=== PATIENT | male | born 1970 | race Caucasian/White ===

== ENCOUNTER → 2018-08-27 | Outpatient (CLI) | payer BC ==
--- NOTE | 2018-08-27 13:17 | XR ---
EXAMINATION TYPE: XR shoulder complete LT DATE OF EXAM: 08/27/2018 COMPARISON: NONE HISTORY: Pain TECHNIQUE: Three views are submitted. FINDINGS: The osseous structures are intact. There is no acute fracture or dislocation. Suggestion of a surgic al clip overlying the glenoid. Severe arthropathy of the glenohumeral joint. IMPRESSION: 1. Severe glenohumeral joint arthropathy.
== END | disposition home or self-care (01) ==
LOC: RADXRMAIN 12:58
PROVIDERS: ATTEND Family Medicine
DX: M12.812 Other specific arthropathies, not elsewhere classified, left shoulder (principal); M25.512 Pain in left shoulder

== ENCOUNTER → 2018-09-18 | Outpatient (CLI) | payer BC ==
--- NOTE | 2018-09-24 11:01 | MR ---
EXAMINATION TYPE: MR shoulder LT wo/w con DATE OF EXAM: 09/18/2018 COMPARISON: Left shoulder x-ray August 27, 2015. Outside left shoulder MRI October 05, 2016. HISTORY: Pain in Left shoulder, history of prior surgeries. TECHNIQUE: Multiplanar, multisequence images of the left shoulder is performed without and with 7.5 m L intravenous Gadavist gadolinium contrast. FINDINGS: Rotator Cuff: Distal supraspinatus and infraspinatus tendons are intact. Distal subscapularis tendon is intact. Rotator cuff muscle bulk is preserved. Acromioclavicular Joint: There is focal effusion at acromioclavicular joint. No significant spurring or joint space loss is noted. Distal acromion morphology is unremarkable. Glenohumeral Joint: Advanced glenohumeral joint arthropathy is identified as there is high riding hum eral head with marked loss, there is subchondral cystic change throughout the osseous glenoid and sub chondral cystic change and edema through the medial portion of the humeral head. Susceptibility Artif act from prior surgery superior aspect of glenoid is noted. Labrum: The superior labrum is blunted with abnormal signal, SLAP type tear is suspected. Biceps Tendon: The long head of biceps is in normal location within bicipital groove. Bone marrow signal: See glenohumeral joint findings detailed above. Other: No suspicious enhancement is seen. IMPRESSION: 1. Since prior MRI which demonstrated surgical change superior glenoid there is new advanced glenohum eral joint arthropathy and high riding humeral head suggesting instability. No rotator cuff tear is e vident.
== END | disposition home or self-care (01) ==
LOC: RADMRIMAIN 06:09
PROVIDERS: ATTEND Family Medicine
DX: M19.012 Primary osteoarthritis, left shoulder (principal); Z98.890 Other specified postprocedural states

== ENCOUNTER → 2019-07-23 | Outpatient (CLI) | payer BC ==
--- NOTE | 2019-07-23 16:07 | XR ---
Left knee HISTORY: Swelling 3 views of the left knee, no comparisons Bone mineralization, joint spaces and alignment are maintained. Vascular calcifications are suspected within the soft tissues. Suprapatellar increased density may be indicative of joint effusion. No fra cture or dislocation. IMPRESSION: Possible joint effusion. Knee MRI may be of benefit.
== END | disposition home or self-care (01) ==
LOC: RADXRMAIN 12:12
PROVIDERS: ATTEND Family Medicine
DX: M25.562 Pain in left knee (principal)

== ENCOUNTER → 2020-10-20 | Outpatient (CLI) | payer BC ==
--- NOTE | 2020-10-20 13:49 | P.STRESS ---
- Stress Test Note Stress Test Results/Findings: Exam Performed: stress echo exercise Exam Date: 10/20/20 Reason for Exam: DIZZINESS Height: 5 ft 10 in Weight: 83.461 kg Protocol: EXERCISE STRESS ECHO Stage: III Duration of Exercise: 9:01 Resting Heart Rate: 69 Resting Blood Pressure: 112/40 Maximum Achieved Heart Rate: 150 Maximum Achieved Blood Pressure: 229/69 85% PMHR: 145 100% PMHR: 170 METS: 10.5 Technologist Comment: Stress Test Results/Findings: Patient underwent exercise stress echo with a Quang protocol treadmill stress test. Patient exercised into Stage 3 for a total of 9 minutes reaching a total of and 10.5 METS. Patient's maximum heart rate was 150 which represented 88 % age-predicted maximum heart rate. Stress EKG portion: At baseline patient's EKG showed normal sinus rhythm, normal axis, no significant ST or T wave abnormalities. At peak exercise, EKG showed no significant change from baseline. Stress echo portion: 2-D echocardiogram was performed in the parasternal long, personal short, apical 2 and apical four-chamber views at rest, peak exercise and in recovery. At baseline, echocardiogram showed left ventricular ejection fraction 60 % without wall motion abnormalities. With peak exercise, echocardiogram shows improvement in left ventricular ejection fraction, increase contractility, decrease in left ventricular dimension without wall motion abnormalities consistent with a normal response to exercise. Conclusions: 1. Normal EKG and echo response to exercise without evidence of inducible ischemia. 2. Good exercise capacity.
== END | disposition home or self-care (01) ==
LOC: RADNMMAIN 09:50
PROVIDERS: ATTEND Family Medicine
DX: R07.9 Chest pain, unspecified (principal)
CPT/HCPCS: 93351

== ENCOUNTER 2021-11-25 08:20 | Day surgery (SDC) | payer BC ==
[2021-11-22 09:10] VITALS: BMI 28.7
[~2021-11-25 08:20] MED LIST: LACTATED RINGERS 1,000 ML IV SCH; LIDOCAINE 1% (10MG/ML) FOR IV START INTRADERMA PRN
[2021-11-25 08:52] VITALS: TEMP 97.7
[2021-11-25] MEDS ORDERED: PROPOFOL 10 MG/ML 20 ML VIAL IV ONE (09:23)
[2021-11-25] MEDS ORDERED: LIDOCAINE 1% INJ 10MG/ML (20 ML MDV) ONE (09:23)
--- NOTE | 2021-11-25 09:23 | P.GSHP ---
History of Present Illness H&P Date: 11/25/21 Chief Complaint: Screening colonoscopy This a 51-year-old male who presents today for screening colonoscopy. Patient denies any significant GI complaints. Past Medical History Past Medical History: Hyperlipidemia History of Any Multi-Drug Resistant Organisms: None Reported Past Surgical History: Joint Replacement Additional Past Surgical History / Comment(s): left shoulder Past Anesthesia/Blood Transfusion Reactions: No Reported Reaction Past Psychological History: No Psychological Hx Reported Smoking Status: Former smoker Past Alcohol Use History: None Reported Past Drug Use History: Marijuana Additional Drug Use History / Comment(s): medical card-for pain issues Medications and Allergies Home Medications Medication Instructions Recorded Confirmed Type Atorvastatin [Lipitor] 40 mg PO DAILY 11/22/21 11/22/21 History HYDROcodone/APAP 5-325MG [[place] 1 tab PO BID PRN 11/22/21 11/22/21 History 5-325] Allergies Allergy/AdvReac Type Severity Reaction Status Date / Time naproxen [From Aleve] Allergy Rash/Hives Verified 11/22/21 09:04 Surgical - Exam Vital Signs Temp Pulse Resp BP Pulse Ox 97.7 F 73 20 148/94 96 11/25/21 08:48 11/25/21 08:48 11/25/21 08:48 11/25/21 08:48 11/25/21 08:48 - General well developed, well nourished, no distress - Eyes PERRL - ENT normal pinna - Neck no masses - Respiratory normal expansion - Cardiovascular Rhythm: regular - Abdomen Abdomen: soft, non tender Assessment and Plan Assessment: We'll perform screening colonoscopy
--- NOTE | 2021-11-25 09:32 | P.OP ---
Date of Procedure: 11/25/21 Preoperative Diagnosis: Screening colonoscopy Postoperative Diagnosis: Normal colon Procedure(s) Performed: Colonoscopy Anesthesia: MAC Surgeon: Gabo Zimmer Pathology: none sent Condition: stable Disposition: PACU Description of Procedure: PROCEDURE: The patient was placed on the endoscopy table in the lateral position. Digital rectal examination was performed which revealed no abnormalities. The prostate was symmetrical without nodules. Flexible colonoscope was then placed in the patient's anus and passed throughout the entire colon. The ileocecal valve was visualized. The cecum, ascending, transverse, descending and sigmoid colon were normal. The rectum was normal as well. There were no masses, polyps or diverticula noted in the entire colon. SUMMARY OF FINDINGS: Normal colonoscopy.
[2021-11-25 09:52] VITALS: RESP 16
[2021-11-25 09:55] VITALS: BP 135/76; PULSE 75
== END 2021-11-25 10:20 | disposition home or self-care (01) ==
LOC: ORWHC2ENDO 08:20
PROVIDERS: ATTEND Surgery
DX: Z12.11 Encounter for screening for malignant neoplasm of colon (principal); E78.5 Hyperlipidemia, unspecified; Z96.612 Presence of left artificial shoulder joint; Z87.891 Personal history of nicotine dependence; Z79.899 Other long term (current) drug therapy; Z88.6 Allergy status to analgesic agent
CPT/HCPCS: J2001; J2704; G0121